=== PATIENT | male | born 1970 | race Caucasian/White ===

== ENCOUNTER → 2020-10-04 10:50 | Outpatient (CLI) | payer OTHER, SELFPAY ==
--- NOTE | 2020-10-04 10:53 | DI.RAD.S_ITS ---
PROCEDURE: XR WRIST LT MIN 3V INDICATIONS: Wrist injury TECHNIQUE: 3 views of the wrist were acquired. COMPARISON: None. FINDINGS: Bones: No fractures or dislocations. No suspicious bony lesions. There is a distal radius transverse fracture, with extension into the articular surface adjacent to the ulna. Scaphoid view: No trauma to the scaphoid is found. Soft tissues: No suspicious soft tissue calcifications. IMPRESSION: Intra-articular distal radius Colles'fracture, no additional trauma found. Dictated by: Guru Larry M.D. on 10/04/2020 at 11:15 Approved by: Guru Larry M.D. on 10/04/2020 at 11:16
== END ==
PROVIDERS: Referring Provider Physician Assistant; Visit Provider Physician Assistant
DX: S52.532A Colles' fracture of left radius, initial encounter for closed fracture (principal); X58.XXXA Exposure to other specified factors, initial encounter
CPT/HCPCS: 73110